=== PATIENT | female | born 1955 | race Caucasian/White ===

== ENCOUNTER 2020-01-25 01:11 | Inpatient (IN) | payer OTHER ==
[2020-01-25] MEDS ORDERED: ACETAMINOPHEN TAB 500 MG TAB PO STA (01:28)
[2020-01-25] MEDS: SODIUM CHLORIDE 0.9% 500 ML 500 ML IV SCH ×3 (01:30→02:40)
--- NOTE | 2020-01-25 01:37 | ED ---
General Adult HPI - General Chief complaint: Shortness of Breath Stated complaint: Fever Time Seen by Provider: 01/25/20 01:12 Source: patient, EMS Mode of arrival: EMS Limitations: physical limitation - History of Present Illness Initial comments: 64-year-old female patient with past medical history significant for multiple sclerosis, gastroparesis, urostomy, and colostomy presents to the emergency department today for evaluation of fever and shortness of breath. Patient states starting yesterday she started to feel feverish and like her heart was racing. Patient denies any cough or congestion. Denies sore throat or nasal congestion. She denies any rash. States that she did have an episode of vomiting today but believes it was because she ate too much. States she does have gastroparesis and if she over eats this does happen. Patient states that she does have a strong odor to her urine from her ileal conduit but that is common for her. 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 He should states that she has chronic back pain this is not changed. She has dizziness. She does have a pressure ulcer on her coccyx but her cares for she states it is doing well. She denies any other wounds. Patient denies any recent rash, chest pain, abdominal pain, diarrhea, constipation, back pain, numbness, tingling, headache, visual changes, or any other complaints. - Related Data Allergies Allergy/AdvReac Type Severity Reaction Status Date / Time Sulfa (Sulfonamide Allergy Rash/Hives Verified 01/25/20 01:22 Antibiotics) codeine AdvReac Itching Verified 01/25/20 01:22 Review of Systems ROS Statement: Those systems with pertinent positive or pertinent negative responses have been documented in the HPI. ROS Other: All systems not noted in ROS Statement are negative. Past Medical History Past Medical History: Supraventricular Tachycardia (SVT) Additional Past Medical History / Comment(s): MS, gastroperisis History of Any Multi-Drug Resistant Organisms: None Reported Past Surgical History: Section, Hysterectomy Additional Past Surgical History / Comment(s): ostomy, heart ablation Past Psychological History: No Psychological Hx Reported Smoking Status: Never smoker Past Alcohol Use History: None Reported Past Drug Use History: None Reported General Exam Limitations: physical limitation General appearance: alert, in no apparent distress, other (This is a well- developed, well-nourished adult female patient in no acute distress. Vital signs upon presentation are temperature 103.0F, pulse 97, respirations 24, blood pressure 153/80, pulse ox 93% on 2 L.) Eye exam: Present: normal appearance, PERRL, EOMI. Absent: scleral icterus, conjunctival injection, periorbital swelling ENT exam: Present: normal exam, normal oropharynx, mucous membranes moist Respiratory exam: Present: normal lung sounds bilaterally. Absent: respiratory distress, wheezes, rales, rhonchi, stridor Cardiovascular Exam: Present: normal rhythm, tachycardia, normal heart sounds. Absent: systolic murmur, diastolic murmur, rubs, gallop, clicks GI/Abdominal exam: Present: soft, normal bowel sounds, other (There is presence of left lower quadrant colostomy, right lower quadrant ileal conduit for urostomy.). Absent: distended, tenderness, guarding, rebound, rigid Back exam: Present: normal inspection Neurological exam: Present: alert, oriented X3, CN II-XII intact Psychiatric exam: Present: normal affect, normal mood Skin exam: Present: warm, dry, intact, normal color, other (There is stage I pressure ulcer noted to the coccyx. No surrounding erythema. No drainage. ). Absent: rash Course Vital Signs 01/25/20 01/25/20 01/25/20 01:13 02:20 02:30 Temperature 103 F H 101.7 F H Pulse Rate 97 137 H Respiratory 24 24 18 Rate Blood Pressure 153/80 127/61 O2 Sat by Pulse 93 L 96 Oximetry EKG Findings - EKG Comments: EKG Findings:: EKG obtained at shows sinus tachycardia with a right bundle branch block, PVCs every fourth beat. Ventricular rate is 132, TN interval 140, QRS duration 1:30, QT 346, QTc 512. Medical Decision Making - Medical Decision Making 64 year-old female patient presents to the emergency department today for evaluation of fever and shortness of breath. Patient has history of MS, colostomy, and ileal conduit urostomy to the right lower quadrant. Abdomen soft and nontender. Lungs clear to auscultation. She does have a stage I pressure ulcer to the sacral region, does not appear infected. Urinalysis was obtained and is positive nitrite, elevated red and white cells concerning for UTI. Chest x-ray appears clear. Though patient may chronically colonize the urine we have no other source of infection at this time so Levaquin will be started. Coronavirus testing is pending. She was given IV fluids. She'll be admitted to the hospital for sepsis and UTI. Patient is agreeable with this plan. - Lab Data Result diagrams: 01/25/20 01:37 01/25/20 01:37 Lab Results 01/25/20 01/25/20 01/25/20 Range/Units 01:37 01:37 01:37 WBC 5.9 (3.8-10.6) k/uL RBC 4.70 (3.80-5.40) m/uL Hgb 13.0 (11.4-16.0) gm/dL Hct 38.7 (34.0-46.0) % MCV 82.5 (80.0-100.0) fL MCH 27.6 (25.0-35.0) pg MCHC 33.5 (31.0-37.0) g/dL RDW 15.7 H (11.5-15.5) % Plt Count 143 L (150-450) k/uL Neutrophils % 86 % Lymphocytes % 7 % Monocytes % 5 % Eosinophils % 2 % Basophils % 0 % Neutrophils # 5.1 (1.3-7.7) k/uL Lymphocytes # 0.4 L (1.0-4.8) k/uL Monocytes # 0.3 (0-1.0) k/uL Eosinophils # 0.1 (0-0.7) k/uL Basophils # 0.0 (0-0.2) k/uL PT 9.4 (9.0-12.0) sec INR 0.9 (<1.2) APTT 23.6 (22.0-30.0) sec Sodium 140 (137-145) mmol/L Potassium 3.5 (3.5-5.1) mmol/L Chloride 109 H (98-107) mmol/L Carbon Dioxide 23 (22-30) mmol/L Anion Gap 8 mmol/L BUN 14 (7-17) mg/dL Creatinine 0.47 L (0.52-1.04) mg/dL Est GFR (CKD-EPI)AfAm >90 (>60 ml/min/1.73 sqM) Est GFR (CKD-EPI)NonAf >90 (>60 ml/min/1.73 sqM) Glucose 120 H (74-99) mg/dL Plasma Lactic Acid [place] (0.7-2.0) mmol/L Calcium 8.5 (8.4-10.2) mg/dL Total Bilirubin 0.5 (0.2-1.3) mg/dL AST 22 (14-36) U/L ALT 20 (4-34) U/L Alkaline Phosphatase 61 (38-126) U/L Troponin I (0.000-0.034) ng/mL Total Protein 6.2 L (6.3-8.2) g/dL Albumin 3.6 (3.5-5.0) g/dL Urine Color Urine Appearance (Clear) Urine pH (5.0-8.0) Ur Specific [place] (1.001-1.035) Urine Protein (Negative) Urine Glucose (UA) (Negative) Urine Ketones (Negative) Urine Blood (Negative) Urine Nitrite (Negative) Urine Bilirubin (Negative) Urine Urobilinogen (<2.0) mg/dL Ur Leukocyte Esterase (Negative) Urine RBC (0-5) /hpf Urine WBC (0-5) /hpf Urine Bacteria (None) /hpf Urine Mucus (None) /hpf 01/25/20 01/25/20 01/25/20 Range/Units 01:37 01:37 02:10 WBC (3.8-10.6) k/uL RBC (3.80-5.40) m/uL Hgb (11.4-16.0) gm/dL Hct (34.0-46.0) % MCV (80.0-100.0) fL MCH (25.0-35.0) pg MCHC (31.0-37.0) g/dL RDW (11.5-15.5) % Plt Count (150-450) k/uL Neutrophils % % Lymphocytes % % Monocytes % % Eosinophils % % Basophils % % Neutrophils # (1.3-7.7) k/uL Lymphocytes # (1.0-4.8) k/uL Monocytes # (0-1.0) k/uL Eosinophils # (0-0.7) k/uL Basophils # (0-0.2) k/uL PT (9.0-12.0) sec INR (<1.2) APTT (22.0-30.0) sec Sodium (137-145) mmol/L Potassium (3.5-5.1) mmol/L Chloride (98-107) mmol/L Carbon Dioxide (22-30) mmol/L Anion Gap mmol/L BUN (7-17) mg/dL Creatinine (0.52-1.04) mg/dL Est GFR (CKD-EPI)AfAm (>60 ml/min/1.73 sqM) Est GFR (CKD-EPI)NonAf (>60 ml/min/1.73 sqM) Glucose (74-99) mg/dL Plasma Lactic Acid [place] 4.0 H* (0.7-2.0) mmol/L Calcium (8.4-10.2) mg/dL Total Bilirubin (0.2-1.3) mg/dL AST (14-36) U/L ALT (4-34) U/L Alkaline Phosphatase (38-126) U/L Troponin I 0.013 (0.000-0.034) ng/mL Total Protein (6.3-8.2) g/dL Albumin (3.5-5.0) g/dL Urine Color Light Yellow Urine Appearance Clear (Clear) Urine pH 7.0 (5.0-8.0) Ur Specific [place] 1.010 (1.001-1.035) Urine Protein 2+ H (Negative) Urine Glucose (UA) Negative (Negative) Urine Ketones Negative (Negative) Urine Blood Moderate H (Negative) Urine Nitrite Positive H (Negative) Urine Bilirubin Negative (Negative) Urine Urobilinogen <2.0 (<2.0) mg/dL Ur Leukocyte Esterase Large H (Negative) Urine RBC 26 H (0-5) /hpf Urine WBC 53 H (0-5) /hpf Urine Bacteria Rare H (None) /hpf Urine Mucus Rare H (None) /hpf - Radiology Data Radiology results: report reviewed, image reviewed One view x-ray of the chest is obtained. Report was reviewed in its entirety. Impression by Dr. Samson shows normal chest. Disposition Clinical Impression: Sepsis, UTI (urinary tract infection) Disposition: ADMITTED IP TO THIS [facility] Condition: Serious Referrals: Nonstaff,Physician [Primary Care Provider] - 1-2 days Decision to Admit Reason: Admit from EC Decision Date: 01/25/20 Decision Time: 02:40
[2020-01-25] MEDS ORDERED: IBUPROFEN 600 MG TAB PO STA (01:43)
[2020-01-25 01:44] LABS: Basophils % (A) 0 %; Eosinophils # (A) 0.1 k/uL (0-0.7); Eosinophils % (A) 2 %; HCT 38.7 % (34.0-46.0); Lymphocytes # (A) 0.4 k/uL (1.0-4.8); Lymphocytes % (A) 7 %; MCH 27.6 pg (25.0-35.0); MCHC 33.5 g/dL (31.0-37.0); MCV 82.5 fL (80.0-100.0); Mean Platelet Volume 7.4; Monocytes # (A) 0.3 k/uL (0-1.0); Monocytes % (A) 5 %; Neutrophils # (A) 5.1 k/uL (1.3-7.7); Neutrophils % (A) 86 %; Platelet Count 143 k/uL (150-450); RDW 15.7 % (11.5-15.5); WBC 5.9 k/uL (3.8-10.6)
[2020-01-25 01:52] LABS: INR 0.9 (<1.2); Partial Thromboplastin Time 23.6 sec (22.0-30.0); Prothrombin Time 9.4 sec (9.0-12.0)
[2020-01-25 01:59] LABS: ALT 20 U/L (4-34); AST 22 U/L (14-36); African American GFR (CKD) >90 (>60 ml/min/1.73 sqM); Albumin 3.6 g/dL (3.5-5.0); Alkaline Phosphatase 61 U/L (38-126); Anion Gap 8 mmol/L; Blood Urea Nitrogen 14 mg/dL (7-17); Calcium 8.5 mg/dL (8.4-10.2); Carbon Dioxide 23 mmol/L (22-30); Chloride 109 mmol/L (98-107); Glucose 120 mg/dL (74-99); Non-African American GFR(CKD) >90 (>60 ml/min/1.73 sqM); Potassium 3.5 mmol/L (3.5-5.1); Sodium 140 mmol/L (137-145); Total Bilirubin 0.5 mg/dL (0.2-1.3); Total Protein 6.2 g/dL (6.3-8.2)
[2020-01-25] MEDS ORDERED: SODIUM CHLORIDE 0.9% 1,000 ML IV ONE (02:07)
[2020-01-25 02:25] LABS: Appearance,Urine Clear (Clear); Bacteria,Urine Rare /hpf; Bilirubin,Urine Negative (Negative); Blood,Urine Moderate (Negative); Color,Urine Light Yellow; Glucose,Urine (UA) Negative (Negative); Ketones,Urine Negative (Negative); Leukocyte Esterase,Urine Large (Negative); Mucus,Urine Rare /hpf; Nitrite,Urine Positive (Negative); Protein,Urine 2+ (Negative); RBC,Urine 26 /hpf (0-5); Urobilinogen,Urine <2.0 mg/dL (<2.0); WBC,Urine 53 /hpf (0-5)
[2020-01-25] MEDS ORDERED: LEVOFLOXACIN 750MG-D5W PMX 750 MG in DEXTROSE/WATER 1 150ML.BAG IVPB STA (02:37)
[2020-01-25] MEDS ORDERED: NALOXONE 0.4 MG/ML 1 ML VIAL IV PRN (02:38)
[2020-01-25] MEDS ORDERED: LEVOFLOXACIN 750MG-D5W PMX 750 MG in DEXTROSE/WATER 1 150ML.BAG IVPB SCH (02:45)
--- NOTE | 2020-01-25 02:49 | XR ---
EXAMINATION TYPE: XR chest 1V DATE OF EXAM: 01/25/2020 COMPARISON: NONE HISTORY: Fever TECHNIQUE: FINDINGS: Heart and mediastinum are normal. Lungs are clear. Diaphragm is normal. Bony thorax appears normal. There are chest leads. IMPRESSION: Normal chest.
[2020-01-25] MEDS: SODIUM CHLORIDE 0.9% 1,000 ML IV SCH ×2 (02:58→19:25)
[2020-01-25] MEDS: ACETAMINOPHEN TAB 325 MG TAB PO PRN ×3 (04:38→19:24)
[2020-01-25] MEDS ORDERED: SODIUM CHLORIDE 0.9% 500 ML 500 ML IV ONE (08:06)
[2020-01-25] MEDS: SERTRALINE 100 MG TAB PO SCH (12:52)
[2020-01-25] MEDS: MULTIVITAMINS, THERA 1 EACH TAB PO SCH (12:52)
[2020-01-25] MEDS: BACLOFEN 10 MG TAB PO SCH ×3 (12:52→20:43)
--- NOTE | 2020-01-25 14:22 | P.HPIM ---
History of Present Illness Patient is a pleasant 64-year-old female with known history of morbid sclerosis came in with the complaints of fever denied any body aches. Denied any other symptoms. Patient has a urostomy has a colostomy bag patient denied any area of redness patient doesn't have any cell lightest only abnormality we can find is a significantly abnormal urine and patient is admitted for UTI patient has had UTIs in the past patient was started on levofloxacin which were discontinued patient was started on Rocephin I do not have any previous urine cultures available in the system to look for Previous organisms and sensitivities. Patient has chronic weakness independent in ADLs and IADLs and the use at home her helps her. Review of Systems REVIEW OF SYSTEMS: CONSTITUTIONAL: No fever, no malaise, no fatigue. HEENT: No recent visual problems or hearing problems. Denied any sore throat. CARDIOVASCULAR: No chest pain, orthopnea, PND, no palpitations, no syncope. PULMONARY: No shortness of breath, no cough, no hemoptysis. GASTROINTESTINAL: No diarrhea, no nausea, no vomiting, no abdominal pain. NEUROLOGICAL: No headaches, no weakness, no numbness. HEMATOLOGICAL: Denies any bleeding or petechiae. GENITOURINARY: Denies any burning micturition, frequency, or urgency. MUSCULOSKELETAL/RHEUMATOLOGICAL: Denies any joint pain, swelling, or any muscle pain. ENDOCRINE: Denies any polyuria or polydipsia. The rest of the 14-point review of systems is negative. Past Medical History Past Medical History: Sleep Apnea/CPAP/BIPAP, Supraventricular Tachycardia (SVT) Additional Past Medical History / Comment(s): MS, gastroperisis History of Any Multi-Drug Resistant Organisms: None Reported Past Surgical History: Section, Hysterectomy Additional Past Surgical History / Comment(s): ostomy, heart ablation Past Anesthesia/Blood Transfusion Reactions: No Reported Reaction Past Psychological History: No Psychological Hx Reported Smoking Status: Never smoker Past Alcohol Use History: None Reported Past Drug Use History: None Reported Medications and Allergies Home Medications Medication Instructions Recorded Confirmed Type Acetaminophen Tab [Tylenol] 1,000 mg PO DAILY PRN 01/25/20 01/25/20 History Baclofen [Lioresal] 20 mg PO QID 01/25/20 01/25/20 History Multivitamins, Thera [Multivitamin 1 tab PO DAILY 01/25/20 01/25/20 History (formulary)] Sertraline [Zoloft] 100 mg PO DAILY 01/25/20 01/25/20 History oxyCODONE-APAP 5-325MG [Percocet 1 tab PO Q8HR PRN 01/25/20 01/25/20 History 5-325 mg] Allergies Allergy/AdvReac Type Severity Reaction Status Date / Time Sulfa (Sulfonamide Allergy Rash/Hives Verified 01/25/20 10:00 Antibiotics) codeine AdvReac Itching Verified 01/25/20 10:00 Physical Exam Vitals: Vital Signs Temp Pulse Pulse Resp BP BP Pulse Ox 01/25/20 07:22 18 01/25/20 07:00 98.5 F 85 20 104/66 99 01/25/20 04:00 98.8 F 109 H 18 113/66 96 01/25/20 02:30 101.7 F H 137 H 18 127/61 96 01/25/20 02:20 24 01/25/20 01:13 103 F H 97 24 153/80 93 L Intake and Output 01/24/20 01/25/20 01/25/20 22:59 06:59 14:59 Output Total 700 700 Balance -700 -700 Output: Urine 700 700 Other: Voiding Method Ileal Conduit (Left) Ileal Conduit (Left) Weight 81.647 kg PHYSICAL EXAMINATION: GENERAL: The patient is alert and oriented x3, not in any acute distress. Well developed, well nourished. HEENT: Pupils are round and equally reacting to light. EOMI. No scleral icterus. No conjunctival pallor. Normocephalic, atraumatic. No pharyngeal erythema. No thyromegaly. CARDIOVASCULAR: S1 and S2 present. No murmurs, rubs, or gallops. PULMONARY: Chest is clear to auscultation, no wheezing or crackles. ABDOMEN: Soft, nontender, nondistended, normoactive bowel sounds. No palpable organomegaly. has a urostomy on the right side and the ileostomy in the left side MUSCULOSKELETAL: No joint swelling or deformity. EXTREMITIES: No cyanosis, clubbing, or pedal edema. NEUROLOGICAL: Gross neurological examination did not reveal any new focal deficits. Patient does have chronic weakness in both legs patient had optic neuritis years ago SKIN: No rashes. Results CBC & Chem 7: 01/25/20 01:37 01/25/20 01:37 Labs: Abnormal Lab Results - Last 24 Hours (Table) 01/25/20 01/25/20 01/25/20 Range/Units 01:37 01:37 01:37 RDW 15.7 H (11.5-15.5) % Plt Count 143 L (150-450) k/uL Lymphocytes # 0.4 L (1.0-4.8) k/uL Chloride 109 H (98-107) mmol/L Creatinine 0.47 L (0.52-1.04) mg/dL Glucose 120 H (74-99) mg/dL Plasma Lactic Acid [place] 4.0 H* (0.7-2.0) mmol/L Total Protein 6.2 L (6.3-8.2) g/dL Urine Protein (Negative) Urine Blood (Negative) Urine Nitrite (Negative) Ur Leukocyte Esterase (Negative) Urine RBC (0-5) /hpf Urine WBC (0-5) /hpf Urine Bacteria (None) /hpf Urine Mucus (None) /hpf 01/25/20 01/25/20 Range/Units 02:10 04:23 RDW (11.5-15.5) % Plt Count (150-450) k/uL Lymphocytes # (1.0-4.8) k/uL Chloride (98-107) mmol/L Creatinine (0.52-1.04) mg/dL Glucose (74-99) mg/dL Plasma Lactic Acid [place] 2.9 H* (0.7-2.0) mmol/L Total Protein (6.3-8.2) g/dL Urine Protein 2+ H (Negative) Urine Blood Moderate H (Negative) Urine Nitrite Positive H (Negative) Ur Leukocyte Esterase Large H (Negative) Urine RBC 26 H (0-5) /hpf Urine WBC 53 H (0-5) /hpf Urine Bacteria Rare H (None) /hpf Urine Mucus Rare H (None) /hpf Microbiology - Last 24 Hours (Table) 01/25/20 02:10 Urine Culture - Preliminary Urine,Catheterized Thrombosis Risk Factor Assmnt - Choose All That Apply Each Factor Represents 1 point: Obesity (BMI >25), Sepsis (< 1month) Each Risk Factor Represents 2 Points: Age 61-74 years, Patient confined to bed Thrombosis Risk Factor Assessment Total Risk Factor Score: 6 Thrombosis Risk Factor Assessment Level: High Risk Assessment and Plan Plan: -Sepsis: Seconded to possible urinary tract infection urine cultures blood cultures were obtained today patient appears to dictated urinary tract infection with a colostomy bag because of which I'll consult infectious disease continue with Rocephin, IV fluids -Obstructive sleep apnea and uses CPAP machine which will be continued -History of SVT felicity episodes of this time -Multiple sclerosis: Supportive care -Due to prophylaxis Lovenox and GI prophylaxis Pepcid
[2020-01-25] MEDS: ONDANSETRON 4 MG/2 ML VIAL IVP PRN (17:42)
[2020-01-25] MEDS: FAMOTIDINE 20 MG TAB PO SCH (20:43)
[2020-01-25] MEDS ORDERED: FAMOTIDINE 20 MG TAB PO SCH (21:00)
[2020-01-25] MEDS: oxyCODONE-APAP 5-325MG 1 EACH TAB PO PRN (23:44)
[2020-01-26] MEDS: ACETAMINOPHEN TAB 325 MG TAB PO PRN (02:51)
[2020-01-26] MEDS ORDERED: LEVOFLOXACIN 750MG-D5W PMX 750 MG in DEXTROSE/WATER 1 150ML.BAG IVPB SCH (03:30)
[2020-01-26] MEDS: SODIUM CHLORIDE 0.9% 1,000 ML IV SCH ×2 (05:40→17:56)
[2020-01-26] MEDS: oxyCODONE-APAP 5-325MG 1 EACH TAB PO PRN ×2 (05:41→17:57)
[2020-01-26] MEDS: BACLOFEN 10 MG TAB PO SCH ×4 (05:41→23:54)
[2020-01-26] MEDS: ENOXAPARIN 40 MG/0.4 ML SYRINGE SQ SCH (07:59)
[2020-01-26] MEDS: SERTRALINE 100 MG TAB PO SCH (07:59)
[2020-01-26] MEDS: FAMOTIDINE 20 MG TAB PO SCH (07:59)
[2020-01-26] MEDS: MULTIVITAMINS, THERA 1 EACH TAB PO SCH (07:59)
[2020-01-26] MEDS: ONDANSETRON 4 MG/2 ML VIAL IVP PRN (08:02)
[2020-01-26] MEDS ORDERED: IOPAMIDOL CONTRAST (ORAL USE) VIAL PO PRN (09:16)
--- NOTE | 2020-01-26 09:22 | P.CONS ---
History of Present Illness - Reason for Consult Consult date: 01/25/20 Urinary tract infection Requesting physician: Ezequiel Franklin - Chief Complaint Fever and vomiting 1 day - History of Present Illness Patient is 64-year-old female with a past medical history significant for MS chronic bedbound state in this patient who did have a urostomy and colostomy patient has been brought into the ER with concern of fever and apparent started last night that is the day before presentation to the hospital patient also complaining of tachycardia and did have an episode of vomiting patient denies having any headache or URI symptoms no chest pain shortness of breath or cough no significant abdominal pain denies having any diarrhea did mention the urostomy urine is more concentrated and more foul-smelling patient on arrival to the ER did have a fever or white count has been normal UA was negative chest x-ray was reported negative for any acute infiltrate patient has been diagnosed with urinary tract infection she was started on Rocephin admitted to the hospital infectious disease was consulted for further management of antibiotic therapy Review of Systems Positive point has been mentioned in the HPI rest of the systems are negative Past Medical History Past Medical History: Sleep Apnea/CPAP/BIPAP, Supraventricular Tachycardia (SVT) Additional Past Medical History / Comment(s): MS, gastroperisis History of Any Multi-Drug Resistant Organisms: None Reported Past Surgical History: Section, Hysterectomy Additional Past Surgical History / Comment(s): ostomy, heart ablation Past Anesthesia/Blood Transfusion Reactions: No Reported Reaction Past Psychological History: No Psychological Hx Reported Smoking Status: Never smoker Past Alcohol Use History: None Reported Past Drug Use History: None Reported Medications and Allergies Home Medications Medication Instructions Recorded Confirmed Type Acetaminophen Tab [Tylenol] 1,000 mg PO DAILY PRN 01/25/20 01/25/20 History Baclofen [Lioresal] 20 mg PO QID 01/25/20 01/25/20 History Multivitamins, Thera [Multivitamin 1 tab PO DAILY 01/25/20 01/25/20 History (formulary)] Sertraline [Zoloft] 100 mg PO DAILY 01/25/20 01/25/20 History oxyCODONE-APAP 5-325MG [Percocet 1 tab PO Q8HR PRN 01/25/20 01/25/20 History 5-325 mg] Allergies Allergy/AdvReac Type Severity Reaction Status Date / Time Sulfa (Sulfonamide Allergy Rash/Hives Verified 01/25/20 10:00 Antibiotics) codeine AdvReac Itching Verified 01/25/20 10:00 Physical Exam Vitals: Vital Signs Temp Pulse Pulse Resp BP BP Pulse Ox 01/25/20 15:00 98.7 F 94 16 112/69 98 01/25/20 07:22 18 01/25/20 07:00 98.5 F 85 20 104/66 99 01/25/20 04:00 98.8 F 109 H 18 113/66 96 01/25/20 02:30 101.7 F H 137 H 18 127/61 96 01/25/20 02:20 24 01/25/20 01:13 103 F H 97 24 153/80 93 L Intake and Output 01/25/20 01/25/20 01/25/20 06:59 14:59 22:59 Intake Total 1505 Output Total 700 700 Balance -700 805 Intake: Intake, IV Titration 1025 Amount Sodium Chloride 0.9% 1, 525 000 ml @ 75 mls/hr IV . [id number] [facility] Rx#:[id number] Sodium Chloride 0.9% 500 500 ml 500 ml @ 999 mls/hr IV .Q31M ONE Rx#:[id number] Oral 480 Output: Urine 700 700 Other: Voiding Method Ileal Conduit (Left) Ileal Conduit (Left) # Voids 2 Weight 81.647 kg GENERAL DESCRIPTION: Middle-aged female lying in bed, no distress. No tachypnea or accessory muscle of respiration use. HEENT: Shows Pallor , no scleral icterus. Oral mucous membrane is dry. No pharyngeal erythema or thrush NECK: Trachea central, no thyromegaly. LUNGS: Unlabored breathing. Clear to auscultation anteriorly. No wheeze or crackle. HEART: S1, S2, regular rate and rhythm. No loud murmur ABDOMEN: Soft, no tenderness , guarding or rigidity, no organomegaly EXTREMITIES: No edema of feet. SKIN: No rash, no masses palpable. NEUROLOGICAL: The patient is awake, alert, oriented x3, mood and affect normal. Results CBC & Chem 7: 01/25/20 01:37 01/25/20 01:37 Labs: Abnormal Lab Results - Last 24 Hours (Table) 01/25/20 01/25/20 01/25/20 Range/Units 01:37 01:37 01:37 RDW 15.7 H (11.5-15.5) % Plt Count 143 L (150-450) k/uL Lymphocytes # 0.4 L (1.0-4.8) k/uL Chloride 109 H (98-107) mmol/L Creatinine 0.47 L (0.52-1.04) mg/dL Glucose 120 H (74-99) mg/dL Plasma Lactic Acid [place] 4.0 H* (0.7-2.0) mmol/L Total Protein 6.2 L (6.3-8.2) g/dL Urine Protein (Negative) Urine Blood (Negative) Urine Nitrite (Negative) Ur Leukocyte Esterase (Negative) Urine RBC (0-5) /hpf Urine WBC (0-5) /hpf Urine Bacteria (None) /hpf Urine Mucus (None) /hpf 01/25/20 01/25/20 Range/Units 02:10 04:23 RDW (11.5-15.5) % Plt Count (150-450) k/uL Lymphocytes # (1.0-4.8) k/uL Chloride (98-107) mmol/L Creatinine (0.52-1.04) mg/dL Glucose (74-99) mg/dL Plasma Lactic Acid [place] 2.9 H* (0.7-2.0) mmol/L Total Protein (6.3-8.2) g/dL Urine Protein 2+ H (Negative) Urine Blood Moderate H (Negative) Urine Nitrite Positive H (Negative) Ur Leukocyte Esterase Large H (Negative) Urine RBC 26 H (0-5) /hpf Urine WBC 53 H (0-5) /hpf Urine Bacteria Rare H (None) /hpf Urine Mucus Rare H (None) /hpf Microbiology - Last 24 Hours (Table) 01/25/20 02:10 Urine Culture - Preliminary Urine,Catheterized Assessment and Plan Assessment: 1- patient presented to hospital with fever and episode of vomiting In this patient who do have underlying MS did have a positive UA however that has been obtained from urostomy which would always be positive underlying urinary source not entirely excluded however will like to make sure no evidence of any other intra-abdominal source for her fever currently do not have any respiratory symptoms and chest x-ray has been negative and no evidence of any cellulitis (1) Sepsis Current Visit: Yes Status: Acute Code(s): A41.9 - SEPSIS, UNSPECIFIED [facility] SNOMED Code(s): 96881081 (2) UTI (urinary tract infection) Current Visit: Yes Status: Acute Code(s): N39.0 - URINARY TRACT INFECTION, SITE NOT SPECIFIED SNOMED Code(s): 09649908 Plan: 1- we will check a CT of abdominal pelvis to rule out any abdominal pathology 2- Rocephin 2 g daily to continue 3-gentle IV fluid We will follow on clinical condition and cultures to further adjust medication if needed Thank you for this consultation will follow this patient with you Time with Patient: Greater than 30
[2020-01-26] MEDS ORDERED: PANTOPRAZOLE 40 MG/10 ML VIAL IVP SCH (12:15)
--- NOTE | 2020-01-26 12:20 | CT ---
EXAMINATION TYPE: CT abdomen pelvis w con DATE OF EXAM: 01/26/2020 COMPARISON: HISTORY: Fever and vomitting CT DLP: 1425.4 mGycm CONTRAST: CT scan of the abdomen and pelvis is performed with Oral Contrast and with IV Contrast, patient injec lópez with 100 ml mL of Isovue 300. FINDINGS: LUNG BASES-: No visible nodule. No infiltrate. LIVER/GB: The gallbladder is surgically absent. Mild hepatic steatosis. No space occupying hepatic lesion. Biliary tree is of normal caliber. PANCREAS: No inflammation. No distinct mass. SPLEEN: No splenic enlargement. No lesion seen. ADRENALS: No nodule. No thickening. KIDNEYS/BLADDER: Normal appearing urinary bladder is not visualized. Suspect bladder resection with n eobladder and overlying ileostomy. There is fullness of the left renal collecting system. Staghorn ca lculus noted within the upper pole of the left kidney measures approximately 2.4 cm. Additional calcu nba lower pole measures 1 cm. There is a 1.6 cm calculus within the left renal pelvis which demonstra brii some mild to moderate fullness. 4 mm nonobstructing calculus mid pole right kidney. There is thic kening of the urothelium. No distinct renal masses appreciated. BOWEL: There is evidence of a midline ileostomy and diverting left lower quadrant colostomy. There is a small amount of fluid and mild strandy attenuation left lower quadrant. Mild adjacent bowel wall t hickening. Findings may reflect inflammatory process without abscess. No evidence for free air. No di lated bowel appreciated. Mild scattered fecal stasis. GENITAL ORGANS: Hysterectomy changes noted. LYMPH NODES: No greater than 1cm abdominal or pelvic lymph nodes are appreciated. AORTA: No significant abnormality. OSSEOUS STRUCTURES: No significant abnormality is seen. OTHER: No significant additional abnormality is seen. IMPRESSION: 1. There is a small amount of fluid and mild strandy attenuation left lower quadrant. Mild adjacen t bowel wall thickening. Findings may reflect inflammatory process without abscess. 2. Postoperative changes as discussed above. Correlate with patient history. 3. Bilateral nephrolithiasis left much greater than right. There is mild to moderate left-sided hydro nephrosis of uncertain chronicity. Thickening and mild enhancement of the urothelium suggests underly ing infection.
--- NOTE | 2020-01-26 14:55 | P.PN ---
Subjective Progress Note Date: 01/26/20 Principal diagnosis: Patient is a pleasant 64-year-old female with known history of morbid sclerosis came in with the complaints of fever denied any body aches. Denied any other s ymptoms. Patient has a urostomy has a colostomy bag patient denied any area of redness patient doesn't have any cell lightest only abnormality we can find is a significantly abnormal urine and patient is admitted for UTI patient has had UTIs in the past patient was started on levofloxacin which were discontinued patient was started on Rocephin I do not have any previous urine cultures available in the system to look for Previous organisms and sensitivities. Patient has chronic weakness independent in ADLs and IADLs and the use at home her helps her. 01/26/2020 Patient is seen and evaluated in follow-up today currently awaiting to undergo CT of the abdomen and pelvis. Patient was having some intermittent nausea and abdominal discomfort although no reports of CVA tenderness noted bilaterally. Patient is currently maintained on IV ceftriaxone and will continue at this time. Infectious disease following. Currently no reports of chest pain, shortness of breath, or palpitations. Patient is having intermittent low-grade fevers today. Patient is also reporting some nausea with no reports of vomiting noted. Urine cultures preliminary showing gram-negative bacilli and will await finalization of cultures to determine discharge antibiotics. Patient's CT of the abdomen and pelvis showed small amount of fluid in mild strandy attenuation of the left lower quadrant with mild adjacent bowel wall thickening and findings may reflect inflammatory process without abscess, bilateral nephrolithiasis left greater than right with mild to moderate left-sided hydronephrosis of uncertain chronicity with thickening and mild enhancement of the urothelium to suggest underlying infection. Urology was consulted and pending at this time. Objective - Vital Signs Vital signs: Vital Signs Temp 99.7 F H 01/26/20 07:00 Pulse 103 H 01/26/20 07:00 Resp 16 01/26/20 07:00 BP 115/68 01/26/20 07:00 Pulse Ox 94 L 01/26/20 07:00 Intake & Output 01/25/20 01/26/20 01/26/20 18:59 06:59 18:59 Intake Total 1505 2050 240 Output Total 3000 4400 Balance -1495 -2350 240 Intake: Intake, IV Titration 1025 1050 Amount Sodium Chloride 0.9% 1, 525 1050 000 ml @ 75 mls/hr IV . [id number] [facility] Rx#:[id number] Sodium Chloride 0.9% 500 500 ml 500 ml @ 999 mls/hr IV .Q31M ONE Rx#:[id number] Oral 480 1000 240 Output: Urine 3000 4400 Other: Voiding Method Ileal Conduit (Left) Ileal Conduit (Left) Ileal Conduit (Left) # Voids 2 2 # Bowel Movements 0 - Exam GENERAL: The patient is alert and oriented x3, not in any acute distress. Well developed, well nourished. HEENT: Pupils are round and equally reacting to light. EOMI. No scleral icterus. No conjunctival pallor. Normocephalic, atraumatic. No pharyngeal erythema. No thyromegaly. CARDIOVASCULAR: S1 and S2 present. No murmurs, rubs, or gallops. PULMONARY: Chest is clear to auscultation, no wheezing or crackles. ABDOMEN: Soft, mild tenderness noted on exam, nondistended, normoactive bowel sounds. No palpable organomegaly. Patient has a urostomy on the right side and the ileostomy in the left side MUSCULOSKELETAL: No joint swelling or deformity. EXTREMITIES: No cyanosis, clubbing, or pedal edema. NEUROLOGICAL: Gross neurological examination did not reveal any new focal deficits. Patient does have chronic weakness in both legs patient had optic neuritis years ago SKIN: No rashes. - Labs CBC & Chem 7: 01/25/20 01:37 01/25/20 01:37 Labs: Microbiology - Last 24 Hours (Table) 01/25/20 02:17 Blood Culture - Preliminary Blood No Growth after 24 hours 01/25/20 02:10 Urine Culture - Preliminary Urine,Catheterized Assessment and Plan Assessment: -Sepsis: Secondary to possible urinary tract infection, urine cultures preliminary showing gram-negative bacilli and patient is maintained on IV Rocephin. Infectious disease following. 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 Infectious disease following. Urine cultures preliminary showing gram-negative bacilli and will await finalization to determine discharge antibiotics. Urology consulted for CT abdomen/pelvis findings as mentioned previously. Will continue to monitor vital signs and labs closely. Will repeat a.m. labs. Further recommendations to follow.
--- NOTE | 2020-01-26 17:20 | PN ---
PROGRESS NOTE DATE OF SERVICE: 01/26/2020 REASON FOR FOLLOWUP: Complicated UTI. INTERVAL HISTORY: The patient did spike a fever of 101.4 this morning. The patient says she is feeling nauseated but did not have any vomiting. Some epigastric discomfort. No abdominal pain. No diarrhea. No chest pain, shortness of breath or cough. PHYSICAL EXAMINATION: Blood pressure 144/81 with a pulse of 98, temperature 98.9. She is 95% on room air. General description is a middle-aged female lying in bed in no distress. RESPIRATORY SYSTEM: Unlabored breathing. Clear to auscultation anteriorly. HEART: S1, S2. Regular rate and rhythm. ABDOMEN: Soft. No tenderness. LABS: No new labs have been obtained today. Urine is showing Gram-negative. Blood culture has been negative. CT of abdomen and pelvis completed this morning shows evidence of bilateral left with left-sided hydronephrosis. DIAGNOSTIC IMPRESSION AND PLAN: Patient admitted to hospital with fever, concern likely for a complicated urinary tract infection with evidence of left-sided hydronephrosis, moderate. Urology has been consulted. Will keep the patient on Rocephin while waiting for the culture to finalize and continue with supportive care. MMODL / IJN: [id number] /
--- NOTE | 2020-01-26 20:13 | P.GSCN ---
History of Present Illness Consult date: 01/26/20 Reason for Consult: The patient is a 64-year-old female admitted on 01/24 for evaluation of a fever probably related to a urinary tract infection. The patient says that she had noted her urine was becoming darker and malodorous several days ago. She says she's had intermittent fever up to 104 prior to coming to the emergency room. She denies any flank pain. Her only abdominal pain is epigastric and she feels is related to her gastroparesis. At the time of admission the patient was noted to have a temperature of 103. Her white blood count was 5900. BUN/creatinine were 14/0.47. Urinalysis showed a pH of 7.0 with 26 red cells 53 white cells and was positive for nitrite. The patient was initially started on Levaquin and then switched to ceftriaxone. Her lactic acid was initially 4.0 at 1:30 AM. It had fallen to 1.7 x 8 a.m. The patient continues to have intermittent fevers. CT scan of the abdomen and pelvis without IV contrast was obtained and showed moderate left hydroureteronephrosis. Bilateral nonobstructive renal calculi were noted. 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 No calculi were noted along the expected course of the ureters to the ileal conduit. I was asked to see the patient for further evaluation of the hydronephrosis. The patient says that she underwent ileal conduit urinary diversion in 1994 in [place]. She says that she is followed by Dr. Betancur and last had a renal ultrasound over one year ago. She has a history of urolithiasis and has apparently undergone bilateral ESWL treatment in the past. She says her urine is intermittently cloudy and that her last urine culture 2 or 3 months ago was negative. Review of Systems - Constitutional Reports chills, Reports fatigue, Reports fever - Cardiovascular Reports shortness of breath, Denies syncope - Respiratory Denies cough, Denies wheezing - Gastrointestinal Reports as per HPI - Genitourinary Genitourinary: Reports as per HPI Past Medical History Past Medical History: Sleep Apnea/CPAP/BIPAP, Supraventricular Tachycardia (SVT) Additional Past Medical History / Comment(s): MS since 1975 , gastroperisis History of Any Multi-Drug Resistant Organisms: None Reported Past Surgical History: Section, Hysterectomy Additional Past Surgical History / Comment(s): Simple cystectomy and ileal conduit urinary diversion, heart ablation Past Anesthesia/Blood Transfusion Reactions: No Reported Reaction Past Psychological History: No Psychological Hx Reported Smoking Status: Never smoker Past Alcohol Use History: None Reported Past Drug Use History: None Reported Medications and Allergies Home Medications Medication Instructions Recorded Confirmed Type Acetaminophen Tab [Tylenol] 1,000 mg PO DAILY PRN 01/25/20 01/25/20 History Baclofen [Lioresal] 20 mg PO QID 01/25/20 01/25/20 History Multivitamins, Thera [Multivitamin 1 tab PO DAILY 01/25/20 01/25/20 History (formulary)] Sertraline [Zoloft] 100 mg PO DAILY 01/25/20 01/25/20 History oxyCODONE-APAP 5-325MG [Percocet 1 tab PO Q8HR PRN 01/25/20 01/25/20 History 5-325 mg] Allergies Allergy/AdvReac Type Severity Reaction Status Date / Time Sulfa (Sulfonamide Allergy Rash/Hives Verified 01/25/20 10:00 Antibiotics) codeine AdvReac Itching Verified 01/25/20 10:00 Surgical - Exam Vital Signs Temp Pulse Resp BP Pulse Ox 103 F H 97 24 153/80 93 L 01/25/20 01:13 01/25/20 01:13 01/25/20 01:13 01/25/20 01:13 01/25/20 01:13 - General well developed, no distress, obese - Neck no masses, no lymphadectomy - Respiratory normal respiratory effort - Abdomen Abdomen: soft, non tender, no organomegaly, surgical scars (Urostomy in right upper quadrant appears to be functioning and is ink. Colostomy in left upper quadrant is also functional) Results - Labs 01/25/20 01:37 01/25/20 01:37 Microbiology - Last 24 Hours (Table) 01/25/20 02:10 Urine Culture - Preliminary Urine,Catheterized Gram Neg Bacilli 01/25/20 02:17 Blood Culture - Preliminary Blood No Growth after 24 hours - Imaging CT scan - abdomen: image reviewed Assessment and Plan (1) Sepsis Narrative/Plan: This is most likely related to a urinary tract infection with bacteremia. Preliminary blood culture is growing a gram-negative finesse. The patient's urine pH is 7.0 and she may have either a Proteus infection or another urea splitting organism. I'm in agreement with the use of ceftriaxone for the present time. Current Visit: Yes Status: Acute Code(s): A41.9 - SEPSIS, UNSPECIFIED ORGANISM SNOMED Code(s): 84249049 (2) Hydroureteronephrosis Narrative/Plan: The source of the patient's left hydroureteronephrosis is not clear. There are no calculi visible along the expected course of the left ureter. The patient has had her ileal conduit for 25 years and it is not unusual to have nonobstructive hydronephrosis developed with time. An attempt will be made to obtain a copy of the patient's most renal ultrasound for comparison. If the left hydronephrosis is new then left percutaneous nephrostomy placement would most likely be the best option for urinary decompression. This would also allow eventual percutaneous nephrostolithotomy for removal of the multiple left renal calculi. The patient will be reevaluated by me tomorrow. Current Visit: Yes Status: Acute Code(s): N13.30 - UNSPECIFIED HYDRONEPHROSIS SNOMED Code(s): 08845981
[2020-01-26] MEDS: diphenhydrAMINE 25 MG CAP PO PRN (22:19)
[2020-01-27] MEDS: oxyCODONE-APAP 5-325MG 1 EACH TAB PO PRN ×3 (01:01→19:34)
[2020-01-27] MEDS: BACLOFEN 10 MG TAB PO SCH ×4 (05:52→23:19)
[2020-01-27] MEDS: SODIUM CHLORIDE 0.9% 1,000 ML IV SCH (05:52)
[2020-01-27] MEDS: SERTRALINE 100 MG TAB PO SCH (09:08)
[2020-01-27] MEDS: PANTOPRAZOLE 40 MG TABLET PO SCH (09:08)
[2020-01-27] MEDS: MULTIVITAMINS, THERA 1 EACH TAB PO SCH (09:08)
[2020-01-27] MEDS: ENOXAPARIN 40 MG/0.4 ML SYRINGE SQ SCH (09:09)
[2020-01-27] MEDS: ONDANSETRON 4 MG/2 ML VIAL IVP PRN ×2 (09:09→20:24)
--- NOTE | 2020-01-27 11:23 | P.PN ---
Progress Note - Text Progress Note Date: 01/27/20 The patient says that she feels better than yesterday. Her only back pain is in the sacroiliac region and she says this is chronic. She is currently afebrile and her highest temperature over the last 24 hours was 100.3. Blood cultures are no growth. Urine culture is growing Escherichia coli which was sensitive to all antibiotics tested. In view of the patient's clinical improvement I feel that further antibiotics are reasonable. At least at this time I do not feel that placement of a left percutaneous nephrostomy tube is necessary as long as the patient continues to improve. Unfortunately we have not been able to obtain old records to determine whether or not the left hydronephrosis is chronic or new.
--- NOTE | 2020-01-27 16:54 | P.PN ---
Subjective 64-year-old female with known history of morbid sclerosis came in with the complaints of fever denied any body aches. Denied any other symptoms. Patient has a urostomy has a colostomy bag patient denied any area of redness patient doesn't have any cell lightest only abnormality we can find is a significantly abnormal urine and patient is admitted for UTI patient has had UTIs in the past patient was started on levofloxacin which were discontinued patient was started on Rocephin I do not have any previous urine cultures available in the system to look for Previous organisms and sensitivities. Patient has chronic weakness independent in ADLs and IADLs and the use at home her helps her. 01/26/2020 Patient is seen and evaluated in follow-up today currently awaiting to undergo CT of the abdomen and pelvis. Patient was having some intermittent nausea and abdominal discomfort although no reports of CVA tenderness noted bilaterally. Patient is currently maintained on IV ceftriaxone and will continue at this time. Infectious disease following. Currently no reports of chest pain, shortness of breath, or palpitations. Patient is having intermittent low-grade fevers today. Patient is also reporting some nausea with no reports of vomiting noted. Urine cultures preliminary showing gram-negative bacilli and will await finalization of cultures to determine discharge antibiotics. Patient's CT of the abdomen and pelvis showed small amount of fluid in mild strandy attenuation of the left lower quadrant with mild adjacent bowel wall thickening and findings may reflect inflammatory process without abscess, bilateral nephrolithiasis left greater than right with mild to moderate left-sided hydronephrosis of uncertain chronicity with thickening and mild enhancement of the urothelium to suggest underlying infection. Urology was consulted and pending at this time. 01/27/2020 Patient has a E. coli pansensitive in the urine. Patient still had low-grade temperature because of which we'll continue to monitor the patient urology is recommending possible nephrostomy tubes patient has multiple bilateral nephrolithiasis. Constitutional: Feels bit better Cardio vascular: denied any chest pain, palpitations Gastrointestinal denied any nausea vomiting Pulmonary: Denied any shortness of breath cough Neurologic denied any new focal deficits All inpatient medications were reviewed and appropriate changes in these medicat ions as dictated in the interval history and assessment and plan. Objective - Vital Signs Vital signs: Vital Signs Temp 98.5 F 01/27/20 15:00 Pulse 82 01/27/20 15:00 Resp 16 01/27/20 15:00 BP 116/72 01/27/20 15:00 Pulse Ox 96 01/27/20 15:00 Intake & Output 01/26/20 01/27/20 01/27/20 18:59 06:59 18:59 Intake Total 240 Output Total 2400 1850 650 Balance -2160 -1850 -650 Intake: Oral 240 Output: Urine 2400 1850 400 Stool 250 Other: Voiding Method Ileal Conduit (Left) Ileal Conduit (Left) Ileal Conduit (Left) # Bowel Movements 0 - Exam GENERAL: The patient is alert and oriented x3, not in any acute distress. Well d eveloped, well nourished. HEENT: Pupils are round and equally reacting to light. EOMI. No scleral icterus. No conjunctival pallor. Normocephalic, atraumatic. No pharyngeal erythema. No thyromegaly. CARDIOVASCULAR: S1 and S2 present. No murmurs, rubs, or gallops. PULMONARY: Chest is clear to auscultation, no wheezing or crackles. ABDOMEN: Soft, mild tenderness noted on exam, nondistended, normoactive bowel sounds. No palpable organomegaly. Patient has a urostomy on the right side and the ileostomy in the left side MUSCULOSKELETAL: No joint swelling or deformity. EXTREMITIES: No cyanosis, clubbing, or pedal edema. NEUROLOGICAL: Gross neurological examination did not reveal any new focal deficits. Patient does have chronic weakness in both legs patient had optic neuritis years ago SKIN: No rashes. - Labs CBC & Chem 7: 01/25/20 01:37 01/25/20 01:37 Labs: Microbiology - Last 24 Hours (Table) 01/25/20 02:10 Urine Culture - Final Urine,Catheterized Escherichia coli 01/25/20 02:17 Blood Culture - Preliminary Blood No Growth after 48 hours Assessment and Plan Plan: -Sepsis: Secondary to urinary tract infection, has E. coli in the urine patient has multiple kidney stones for which the urology is recommending bilateral nephrostomy tubes. Will be continued on Rocephin . 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
[2020-01-27] MEDS: diphenhydrAMINE 25 MG CAP PO PRN (23:20)
[2020-01-28] MEDS: oxyCODONE-APAP 5-325MG 1 EACH TAB PO PRN ×2 (01:42→06:59)
[2020-01-28] MEDS: SODIUM CHLORIDE 0.9% 1,000 ML IV SCH (05:40)
[2020-01-28] MEDS: BACLOFEN 10 MG TAB PO SCH ×2 (05:40→11:00)
--- NOTE | 2020-01-28 06:47 | PN ---
PROGRESS NOTE DATE OF SERVICE: 01/27/2020 REASON FOR FOLLOWUP: Complicated urinary tract infection. INTERVAL HISTORY: Patient is currently afebrile. Patient is breathing comfortably. The patient has some abdominal discomfort but no further vomiting. Denies having any chest pain or shortness of breath or cough. PHYSICAL EXAMINATION: Blood pressure 129/73 with a pulse of 85, temperature 99.3. He is 95% on room air. The patient is a middle-aged female lying in bed in no distress. Respiratory system: Unlabored breathing. Lungs are clear to auscultation anteriorly. Heart S1, S2, regular rate and rhythm. LABS: Urine has been finalized with E coli that is a sensitive pathogen. DIAGNOSTIC IMPRESSION AND PLAN: Patient with E coli complicated urinary tract infection with evidence of left-sided hydronephrosis. Urology is following the patient closely. The patient is covered with Rocephin 2 g daily. Will continue and monitor clinical course closely. MMODL / IJN: [id number] /
[2020-01-28] MEDS: PANTOPRAZOLE 40 MG TABLET PO SCH (06:56)
[2020-01-28] MEDS: ENOXAPARIN 40 MG/0.4 ML SYRINGE SQ SCH (06:56)
[2020-01-28] MEDS: MULTIVITAMINS, THERA 1 EACH TAB PO SCH (06:56)
[2020-01-28] MEDS: SERTRALINE 100 MG TAB PO SCH (06:56)
[2020-01-28 08:37] VITALS: RESP 16
[2020-01-28 09:05] LABS: HCT 39.9 % (34.0-46.0); HGB 12.5 gm/dL (11.4-16.0); Hypochromasia Slight; MCH 26.3 pg (25.0-35.0); MCHC 31.2 g/dL (31.0-37.0); MCV 84.3 fL (80.0-100.0); Mean Platelet Volume 6.9; Platelet Count 159 k/uL (150-450); RBC 4.74 m/uL (3.80-5.40); RDW 15.5 % (11.5-15.5); WBC 3.9 k/uL (3.8-10.6)
[2020-01-28 09:12] LABS: African American GFR (CKD) >90 (>60 ml/min/1.73 sqM); Anion Gap 6 mmol/L; Blood Urea Nitrogen 7 mg/dL (7-17); Calcium 8.2 mg/dL (8.4-10.2); Carbon Dioxide 24 mmol/L (22-30); Chloride 111 mmol/L (98-107); Glucose 137 mg/dL (74-99); Non-African American GFR(CKD) >90 (>60 ml/min/1.73 sqM); Potassium 3.1 mmol/L (3.5-5.1); Sodium 141 mmol/L (137-145)
[2020-01-28] MEDS ORDERED: POTASSIUM CHLORIDE ER 20 MEQ TAB.ER PO STA ×2 (10:29→11:51)
[2020-01-28] MEDS ORDERED: Potassium Replacement Protocol 1 EACH MISC MISCELLANE PRN (11:03)
[2020-01-28] MEDS ORDERED: POTASSIUM CHLORIDE 10 MEQ in WATER FOR INJECTION 1 100ML.BAG IVPB SCH (12:00)
[2020-01-28] MEDS: ONDANSETRON 4 MG/2 ML VIAL IVP PRN (12:03)
--- NOTE | 2020-01-28 12:44 | P.DS ---
Providers Date of admission: 01/25/20 03:18 Attending physician: Satish Lopez Consults: 01/25/20 12:49 Consult Physician Urgent Consulting Provider: Efren Sun Consult Reason/Comments: UTI Do you want consulting provider notified?: Yes 01/26/20 13:31 Consult Physician Urgent Consulting Provider: Ulises Mann Consult Reason/Comments: left side hydronephrosis, bilateral nephrolithiasis, UTI Do you want consulting provider notified?: Yes Primary care physician: Physician Nonstaff Hospital Course: 64-year-old female with known history of morbid sclerosis came in with the complaints of fever denied any body aches. Denied any other symptoms. Patient has a urostomy has a colostomy bag patient denied any area of redness patient doesn't have any cell lightest only abnormality we can find is a significantly abnormal urine and patient is admitted for UTI patient has had UTIs in the past patient was started on levofloxacin which were discontinued patient was started on Rocephin I do not have any previous urine cultures available in the system to look for Previous organisms and sensitivities. Patient has chronic weakness independent in ADLs and IADLs and the use at home her helps her. 01/26/2020 Patient is seen and evaluated in follow-up today currently awaiting to undergo CT of the abdomen and pelvis. Patient was having some intermittent nausea and abdominal discomfort although no reports of CVA tenderness noted bilaterally. Patient is currently maintained on IV ceftriaxone and will continue at this time. Infectious disease following. Currently no reports of chest pain, shortness of breath, or palpitations. Patient is having intermittent low-grade fevers today. Patient is also reporting some nausea with no reports of vomiting noted. Urine cultures preliminary showing gram-negative bacilli and will await finalization of cultures to determine discharge antibiotics. Patient's CT of the abdomen and pelvis showed small amount of fluid in mild strandy attenuation of the left lower quadrant with mild adjacent bowel wall thickening and findings may reflect inflammatory process without abscess, bilateral nephrolithiasis left greater than right with mild to moderate left-sided hydronephrosis of uncertain chronicity with thickening and mild enhancement of the urothelium to suggest underlying infection. Urology was consulted and pending at this time. 01/27/2020 Patient has a E. coli pansensitive in the urine. Patient still had low-grade temperature because of which we'll continue to monitor the patient urology is recommending possible nephrostomy tubes patient has multiple bilateral nephrolithiasis. 01/28/2020 Urology is not planning on any further intervention at this time. Patient is clinically doing well and patient is cleared for discharge from urology and infectious disease perspective and patient will be discharged on 10 days of ciprofloxacin 500 twice a day - Exam GENERAL: The patient is alert and oriented x3, not in any acute distress. Well developed, well nourished. HEENT: Pupils are round and equally reacting to light. EOMI. No scleral icterus. No conjunctival pallor. Normocephalic, atraumatic. No pharyngeal erythema. No thyromegaly. CARDIOVASCULAR: S1 and S2 present. No murmurs, rubs, or gallops. PULMONARY: Chest is clear to auscultation, no wheezing or crackles. ABDOMEN: Soft, mild tenderness noted on exam, nondistended, normoactive bowel sounds. No palpable organomegaly. Patient has a urostomy on the right side and the ileostomy in the left side MUSCULOSKELETAL: No joint swelling or deformity. EXTREMITIES: No cyanosis, clubbing, or pedal edema. NEUROLOGICAL: Gross neurological examination did not reveal any new focal deficits. Patient does have chronic weakness in both legs patient had optic neuritis years ago SKIN: No rashes. Assessment and Plan Plan: -Sepsis: Secondary to urinary tract infection, has E. coli in the urine patient has multiple kidney stones patient's E. 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 -Multiple sclerosis: Supportive care -DVT prophylaxis Lovenox -GI prophylaxis Pepcid Patient Condition at Discharge: Serious Plan - Discharge Summary Discharge Rx Participant: Yes New Discharge Prescriptions: New Ciprofloxacin HCl [Cipro] 500 mg PO Q12H 10 Days #20 tab Continue oxyCODONE-APAP 5-325MG [Percocet 5-325 mg] 1 tab PO Q8HR PRN PRN Reason: Pain Sertraline [Zoloft] 100 mg PO DAILY Baclofen [Lioresal] 20 mg PO QID Multivitamins, Thera [Multivitamin (formulary)] 1 tab PO DAILY Acetaminophen Tab [Tylenol] 1,000 mg PO DAILY PRN PRN Reason: Fever Discharge Medication List Acetaminophen Tab [Tylenol] 1,000 mg PO DAILY PRN 01/25/20 [History] Baclofen [Lioresal] 20 mg PO QID 01/25/20 [History] Multivitamins, Thera [Multivitamin (formulary)] 1 tab PO DAILY 01/25/20 [History] Sertraline [Zoloft] 100 mg PO DAILY 01/25/20 [History] oxyCODONE-APAP 5-325MG [Percocet 5-325 mg] 1 tab PO Q8HR PRN 01/25/20 [History] Ciprofloxacin HCl [Cipro] 500 mg PO Q12H 10 Days #20 tab 01/28/20 [Rx] Follow up Appointment(s)/Referral(s): Kvng Ley MD [STAFF PHYSICIAN] - 1 Week Nonstaff,Physician [Primary Care Provider] - 1-2 days Discharge Disposition: HOME SELF-CARE
--- NOTE | 2020-01-28 13:47 | P.PN ---
Progress Note - Text Progress Note Date: 01/28/20 The patient is afebrile. She is tolerating a regular diet. Her white blood count is 3900. BUN/creatinine are 7. 0.43. In view of the patient's clinical improvement I do not feel that it is necessary to place a percutaneous left nephrostomy tube for drainage at this time. I would suggest the patient be discharged on an oral antibiotic appropriate for her Escherichia coli infection. The patient has been cared for by a urologist near her home in [place], [place] and I suggested that she contact him next week to set up a follow-up appointment. She will take a copy of her recent CT scan on DVD with her so that he can review it and compare it with her previous studies.
[2020-01-28 14:40] VITALS: BP 121/69; PULSE 77; TEMP 98.1
--- NOTE | 2020-01-28 14:50 | PN ---
PROGRESS NOTE DATE OF SERVICE: 01/28/2020 REASON FOR FOLLOWUP: Complicated UTI infection. INTERVAL HISTORY: Patient is currently afebrile. The patient is feeling better. Breathing comfortably. The patient denies having any chest pain or shortness of breath or cough. No nausea, vomiting or diarrhea. PHYSICAL EXAMINATION: Blood pressure 120/64 with a pulse of 74, temperature 98. She is 94% on room air. General description: The patient is a middle-aged female lying in bed in no distress. Respiratory system: Unlabored breathing. Clear to auscultation anteriorly. Heart S1, S2. Regular rate and rhythm. Abdomen soft, no tenderness. LABS: Hemoglobin is 12.5, white count 3.9 creatinine 0.43. Urine with E coli sensitive pathogen. Blood culture has been negative. DIAGNOSTIC IMPRESSION AND PLAN: Patient with complicated urinary tract infection, urine with an E coli. The patient did have left-sided renal stones and hydronephrosis for which urology is recommending patient to follow up with urologist for surgical intervention. Antibiotic on discharge will be Cipro 500 mg twice a day for 10 days and close outpatient followup. MMODL / IJN: [id number] /
== END 2020-01-28 15:30 | disposition home or self-care (01) | DRG 872 ==
LOC: EC 01:11 → 4SSUR 03:18
PROVIDERS: ADMIT Hospitalist; ATTEND Hospitalist
DX: A41.51 Sepsis due to Escherichia coli [E. coli] (principal); N13.6 Pyonephrosis; I47.1 Supraventricular tachycardia; L89.151 Pressure ulcer of sacral region, stage 1; G35 Multiple sclerosis; Z93.6 Other artificial openings of urinary tract status; Z93.2 Ileostomy status; Z20.828 Contact with and (suspected) exposure to other viral communicable diseases; K31.84 Gastroparesis; N31.9 Neuromuscular dysfunction of bladder, unspecified; I45.10 Unspecified right bundle-branch block; I49.3 Ventricular premature depolarization; G47.33 Obstructive sleep apnea (adult) (pediatric); G89.29 Other chronic pain; M53.3 Sacrococcygeal disorders, not elsewhere classified; Z79.899 Other long term (current) drug therapy; Z87.442 Personal history of urinary calculi; Z90.710 Acquired absence of both cervix and uterus; Z98.891 History of uterine scar from previous surgery; Z87.42 Personal history of other diseases of the female genital tract; Z98.890 Other specified postprocedural states; Z74.01 Bed confinement status; Z88.5 Allergy status to narcotic agent; Z88.2 Allergy status to sulfonamides
CPT/HCPCS: 36415; 71045; 74177; 80048; 80053; 81001; 83605; 84484; 85025; 85027; 85610; 85730; 87040; 87077; 87086; 87186; 93005; 96365; 99285